=== PATIENT | female | born 1990 | race Caucasian/White ===

== ENCOUNTER 2019-10-03 05:59 | Inpatient (IN) | payer OTHER, SELFPAY ==
[2019-10-03] VITALS (67 sets, daily range): BP systolic 89–122; BP diastolic 55–75; PULSE 53–166; RESP 13–16; TEMP 36.6–36.7; O2SAT 90–100; BMI 35.2
[2019-10-03] MEDS: LACTATED RINGERS 1,000 ML 125 ML IV CONT ×2 (07:24→08:05)
[2019-10-03 07:41] LABS: Basophils Percent Auto 0.3 % (0.2-1.2); Eosinophils Absolute Auto 0.3 K/mm3 (0-0.3); Eosinophils Percent Auto 2.7 % (0-4.4); Hematocrit 40.9 % (37.0-47.0); Hemoglobin 12.8 g/dL (12.0-15.0); Immature Granulocyte Percent A 1.7 % (0-0.5); Lymphocytes Absolute Auto 1.91 K/mm3 (0.9-3.2); Lymphocytes Percent Auto 16.5 % (18.3-44.2); Mean Corpuscular HGB Conc 31.3 g/dl (32-36); Mean Corpuscular Volume 92.5 fl (80-100); Mean Platelet Volume 10.8 fl (7.4-10.4); Monocytes Absolute Auto 0.9 K/mm3 (0.1-0.6); Monocytes Percent Auto 7.3 % (2.6-8.5); Neutrophils Absolute Auto 8.3 K/mm3 (1.3-6.7); Neutrophils Percent Auto 71.5 % (45.5-73.1); Platelet Count Result 161 k/mm3 (150-375); Red Blood Count 4.42 M/mm3 (4.2-5.4); White Blood Count 11.6 K/mm3 (4.5-10.0)
--- NOTE | 2019-10-03 07:57 | WPDANESEPP ---
Anes - Eval Pre Procedure Procedure: Labor Epidural Date/Time: 10/03/19 07:57 Surgeon: Shlomo Preop Diagnosis: Pain during labor Pre Op Diagnosis: INDURCTION OF LABOR Patient Data Age: 29 Gender: F Height: 5 ft 9 in Weight: 108 kg Last Vital Signs Pulse 71 10/03/19 06:46 BP 89/69 L 10/03/19 06:46 Allergies Allergy/AdvReac Type Severity Reaction Status Date / Time No Known Allergies Allergy Verified 09/05/19 13:37 Home Medications Medication Instructions Recorded Confirmed Type PNV cmb#95-ferrous fumarate-FA 1 tablet PO DAILY 09/05/19 09/05/19 History [] Laboratory Tests 10/03/19 10/03/19 07:21 07:21 WBC 11.6 K/mm3 H K/mm3 (4.5-10.0) RBC 4.42 M/mm3 M/mm3 (4.2-5.4) Hgb 12.8 g/dL g/dL (12.0-15.0) Hct 40.9 % % (37.0-47.0) MCV 92.5 fl fl (80-100) MCH 29.0 pg pg (26-34) MCHC 31.3 g/dl L g/dl (32-36) RDW 14.0 % % (11.5-14.5) Plt Count 161 k/mm3 k/mm3 (150-375) MPV 10.8 fl H fl (7.4-10.4) Immature Gran % (Auto) 1.7 % H % (0-0.5) Neut % (Auto) 71.5 % % (45.5-73.1) Lymph % (Auto) 16.5 % L % (18.3-44.2) [place] % (Auto) 7.3 % % (2.6-8.5) Eos % (Auto) 2.7 % % (0-4.4) Baso % (Auto) 0.3 % % (0.2-1.2) Lymph # (Auto) 1.91 K/mm3 K/mm3 (0.9-3.2) [place] # (Auto) 0.9 K/mm3 H K/mm3 (0.1-0.6) Eos # (Auto) 0.3 K/mm3 K/mm3 (0-0.3) Baso # (Auto) 0.0 K/mm3 K/mm3 (0.0-0.1) Abs Immat Gran (auto) 0.20 K/mm3 H K/mm3 (0.00-0.031) Absolute Neuts (auto) 8.3 K/mm3 H K/mm3 (1.3-6.7) Absolute Nucleated RBC 0.0 K/mm3 K/mm3 (0.0-0.012) Nucleated RBC % 0.0 % % (0.0-0.2) RPR Pending : gestational age ([place] 10/02/19, ) Patient hx anesthesia problems: none Family hx anesthesia problems: none [facility] Social History Social History Smoking status: Never smoker Alcohol intake: current Substance use: never Spiritual care concerns: No Exam Day of Procedure 10/03/19 07:57
--- NOTE | 2019-10-03 08:45 | WPDOBADMIT ---
Obstetrics - Admit Note Admission Note: record reviewed. Additions to the history and/or subsequent changes in the physical findings follow. 29 y/o at 40 1/7 weeks here for induction of labor. GBS neg. uncomplicated. AVSS NST reactive TOCO: contractions every 2-4 min ABD soft, nontender, gravid, vertex EXT nontender Cervix 5/80/-1. AROM with clear fluid. A: IUP at term with favoable cervix. P: Oxytocin. Anticipate .
--- NOTE | 2019-10-03 14:05 | PC.NURSE ---
Patient transferred to post room #284 per wheelchair from labor and delivery. Support person present. Oriented to unit, room, information board, rooming in, admission packet and security measures. Patient verbalizes understanding.
[2019-10-03] MEDS: IBUPROFEN 600 MG TABLET PO ×2 (14:21→19:58)
--- NOTE | 2019-10-03 14:41 | PM.OBPRVD ---
OB - Delivery Note Procedure Delivery date: 10/03/19 Procedure: Induction of labor with Induction method: AROM and per pitocin protocol Delivery monitor: external FHT and external uterine Route of delivery: Episiotomy description: Midline Delivery repair: vicryl (3-0) Specimen: Yes (cord blood) Estimated blood loss (mL): 270 Anesthesia type: Epidural Disposition: PACU Complications: Induction of labor with Narrative: 29 year-old 3 para 1011 at 40 1/7 weeks gestation who presented to the hospital for induction of labor. Oxytocin was administered intravenously. Amniotomy was performed with return of clear fluid. She received an epidural for pain control. Her labor progressed and her cervix dilated completely. She pushed with good effort. A midline episiotomy was made and the 's head delivered to the perineum, followed by the body. The nose and mouth were bulb suctioned. After a delay, the cord was clamped and cut. The infant was handed off the field. Cord blood was collected. The placenta delivered spontaneously and was grossly normal in appearance. The usual 3 vessel cord was noted. The MLE was reapproximated using 3 0 Vicryl in the usual layered fashion. Excellent hemostasis resulted as did excellent reapproximation of the normal anatomy. Needle and instrument counts were correct. The patient was taken to recovery room in stable condition. The infant went to the nursery in stable condition. I was present and scrubbed for the entire delivery. [place] Baby Date of : 10/03/19 Time of : 11:03 Weeks of gestation at delivery: 40 gender: Female Weight (pounds): 9 Weight (ounces): 6 presentation: vertex position: Left Occiput Anterior Placenta delivery description: Spontaneous and Normal Configuration cord vessel description: 3 Vessels score one minute: 8 score five minutes: 9
--- NOTE | 2019-10-03 14:44 | PM.OBDSVD ---
DS: Diagnosis Discharge Diagnosis (1) Normal delivery at term: Code(s): O80 - Encounter for full-term uncomplicated delivery Status: Acute OB - DS: Summary OB Procedures : None OB Procedures Intrapartum: Spontaneous Vag Delivery OB Procedures: : None Time Spent with Patient Time attestation: Total time spent providing and/or coordinating discharge services: DS: Data Data Completed and Pending Labs on day of discharge: Labs from last 24 hours 10/03/19 10/03/19 10/03/19 07:21 07:21 07:21 WBC 11.6 H RBC 4.42 Hgb 12.8 Hct 40.9 MCV 92.5 MCH 29.0 MCHC 31.3 L RDW 14.0 Plt Count 161 MPV 10.8 H Immature Gran % (Auto) 1.7 H Neut % (Auto) 71.5 Lymph % (Auto) 16.5 L [place] % (Auto) 7.3 Eos % (Auto) 2.7 Baso % (Auto) 0.3 Lymph # (Auto) 1.91 [place] # (Auto) 0.9 H Eos # (Auto) 0.3 Baso # (Auto) 0.0 Abs Immat Gran (auto) 0.20 H Absolute Neuts (auto) 8.3 H Absolute Nucleated RBC 0.0 Nucleated RBC % 0.0 RPR Pending Blood Type O Positive Antibody Screen Negative Discharge Plan Discharge Attending physician on discharge: Mac Keenan Discharging Clinician: Mac Keenan Patient Disposition: Home, Self-Care Activity: pelvic rest Diet: regular Discharge Instructions: Education: Mom and Baby Guide Given to: Mother Follow-Up: Call your delivering provider's office for an appointment to be seen in: 6 Weeks Mom and baby should come to the [facility] for the follow-up appointment. Appointment Date/Time: October 06, 2019 at 8:00 am What to expect at your follow-up visit: Blood Pressure Check Physical Assessment Call [phone] if you are unable to keep your appointment time. BREAST CARE: 1. Wear a snug supportive bra. 2. For engorgement discomfort: Breast Feeding: A. Apply warm moist washcloths B. Express milk as needed to relieve engorgement C. Wear loose clothing Bottle Feeding: A. May apply ice packs 3. For sore nipples: A. Identify correct latch-on B. Apply warm moist washcloths before and after nursing C. Air dry nipples after nursing D. May apply Lansinoh cream to nipples EPISIOTOMY/PERINEAL CARE: 1. Until bleeding stops, use your anisa bottle after urinating 2. Change your pad frequently throughout the day 3. You may take sitz baths several times a day (fill your bathtub with warm water and soak for 20 minutes.) Do NOT bathe in the water 4. No tub baths until seen by your physician - You may shower ACTIVITY: 1. Rest as much as possible. 2. Do not exercise or lift anything heavier than your baby (such as laundry or other children.) 3. Avoid stairs or driving as much as possible. 4. Do not put anything into the vagina. No douching, tampons, or sexual activity until seen by physician. NOTIFY PHYSICIAN IF YOU HAVE ANY QUESTIONS OR IF ANY OF THE FOLLOWING SYMPTOMS OCCUR: 1. If your episiotomy becomes red, swollen, or more painful than what you have experienced in the hospital. 2. If your vaginal bleeding becomes foul smelling. 3. If your vaginal bleeding becomes more heavy than a period or if your bleeding changes from pink to bright red. However, you may pass an occasional walnut-sized clot once or twice for the first week . 4. If you experience a sharp, shooting pain in you calves. 5. If you discover a hard, reddened area on your breast or if you experience flu-like symptoms. 6. Temperature of 100.4 or higher. DIET: 1. Eat regular, well-balanced meals. 2. Drink plenty of fluids daily. If , drink to thirst. Call or return if temperature above 100.4? F, increased abdominal pain, increased vaginal bleeding or any new problems. Patient Instructions: Antibiotic Form Stand Alone Forms: General Discharge Information Follow-u
--- NOTE | 2019-10-03 15:15 | PC.NURSE ---
Consult with pt., reviewed infant feeding cues, frequencies, duration of feedings, feeding elimination flow sheet, and signs of adequate intake. Demonstrated stimulation techniques to wake infant for feeding. Assisted with infant to breast. Reviewed positioning/alignment in cross cradle, holding breast in U hold and guided asymmetrical latch on. Discussed rational for each. With in a few attempts, was able to latch correctly. Infant nursed eagerly, with steady draws and frequent swallowing noted. Reviewed signs of a correct latch, effective nursing and suck swallow ratio. was able to maintain latch without discomfort to mother. Nipple care reviewed. Suggested to hold breast during entire feeding to assist with maintaining deep latch, and to stimulate to keep awake and interested in feeding. Instructed mother to call out for RN assistance if she is unable to latch for feeding or she has discomfort with nursing. Instructed feeding should be initiated three hours from start of last feeding or if feeding cues are noted before. Mother voiced understanding of information shared.
[2019-10-03] MEDS: WITCH HAZEL 40 PADS 1 PAD TOPICAL (19:57)
[2019-10-03] MEDS: BENZOCAINE 20% AER SPR (*SP) 56 GM CAN 1 SPRAY TOPICAL (19:57)
[2019-10-04] MEDS: IBUPROFEN 600 MG TABLET PO ×4 (01:42→23:15)
[2019-10-04 04:30] LABS: Hemoglobin 10.5 g/dL (12.0-15.0)
--- NOTE | 2019-10-04 07:00 | PC.NURSE ---
Pt introductions made and plan of care discussed per post , pain management, breast feeding, daily care activities. PT verbalized understanding of such care.
--- NOTE | 2019-10-04 08:30 | WPDANLDPN2 ---
Anes-Prog Note L&D Date/Time: 10/04/19 08:30 Comfortable throughout: labor and delivery Neuraxial method: epidural Epidural/Spinal procedure site: clean & non-tender Neuro status: Neuro function grossly intact. Cardiovascular status: normal Respiratory status: normal Airway patency: baseline Mental status: baseline Post-Op hydration status: normal Vital Signs: Last Vital Signs Temp 36.7 C 10/03/19 19:30 Pulse 70 10/03/19 19:30 Resp 13 10/03/19 19:30 BP 96/55 L 10/03/19 19:30 Pulse Ox 99 10/03/19 19:30 Patient feedback: Patient satisfied with anesthetic care.
[2019-10-04 08:46] LABS: Rapid Plasma Reagin Non-Reactive (NonReactive)
[2019-10-04 08:49] VITALS: PULSE 81; RESP 16; O2SAT 98
[2019-10-04] MEDS: MULTIVIT/MIN/PREN/FOL AC/IRON TABLET 1 TAB PO (08:49)
[2019-10-04 09:00] VITALS: BP 99/57; PULSE 81; RESP 16; TEMP 36.4; O2SAT 98
[2019-10-04] MEDS: WITCH HAZEL 40 PADS 1 PAD TOPICAL ×2 (10:03→17:23)
--- NOTE | 2019-10-04 13:35 | PC.NURSE ---
Consult with pt., mother reports she has some tenderness with first latch that will resolve within the feeding. Requested mother call out next feeding for observation.
--- NOTE | 2019-10-04 16:20 | PC.NURSE ---
Mother called out for assist with latch due to tenderness. Reviewed positioning/alignment in cross cradle, holding breast in U hold and guided asymmetrical latch on. struggles to draw nipple in, mother's areola firms with stimulation. Suggested mother put infant to breast without lifting. Within a few attempts infant was able to latch correctly without tenderness to mother. nursed eagerly, with steady draws and frequent swallowing noted. Reviewed signs of a correct latch, effective nursing and suck swallow ratio. was able to maintain latch without discomfort to mother. Nipple care reviewed. has long pausing with nursing, advised to stimulate to keep infant nursing effectively and assisting with maintaining deep latch. Instructed mother to call out for RN assistance if she is unable to latch infant for feeding or she has discomfort with nursing. Instructed feeding should be initiated three hours from start of last feeding or if feeding cues are noted before. Mother voiced understanding of information shared.
[2019-10-04] MEDS: DOCUSATE SODIUM 100 MG CAPSULE PO (17:20)
[2019-10-04] MEDS: BENZOCAINE 20% AER SPR (*SP) 56 GM CAN 1 SPRAY TOPICAL (17:23)
[2019-10-04] MEDS: LANOLIN (LANSINOH) 7.5 GM CREAM 1 APPLIC TOPICAL (17:23)
[2019-10-04 20:35] VITALS: BP 108/66; PULSE 77; RESP 14; TEMP 36.3; O2SAT 98
[2019-10-05] MEDS: IBUPROFEN 600 MG TABLET PO ×2 (05:26→11:26)
--- NOTE | 2019-10-05 07:55 | PM.OBDSVD ---
OB - DS: Summary OB Procedures : None OB Procedures Intrapartum: Spontaneous Vag Delivery OB Procedures: : None Status at Discharge Functional status at discharge: independent ambulation Overall status at discharge: patient is back to baseline Time Spent with Patient Time attestation: Total time spent providing and/or coordinating discharge services: Time spent: Less than 30 minutes Exam Const: General: comfortable and no acute distress Resp: Effort & Inspection: normal respiratory effort Auscultation: clear to auscultation bilaterally Cardio: Rate: regular rate GI: GI Palp: Yes Soft to palpation Auscultation: normal bowel sounds Other: Fundus firm below umbilicus Psych: Appearance: grossly normal Mental Status: mental status grossly normal Affect: normal affect DS: Data Data Completed and Pending Labs on day of discharge: Labs from last 24 hours 10/03/19 07:21 RPR Non-reactive Discharge Plan Discharge Attending physician on discharge: Mac Keenan Discharging Clinician: Mac Keenan Patient Disposition: Home, Self-Care Activity: pelvic rest Diet: regular Discharge Instructions: Call or return if temperature above 100.4? F, increased abdominal pain, increased vaginal bleeding or any new problems. Stand Alone Forms: General Discharge Information Follow-up/Referrals: Mac Keenan MD [Physician] - (6 weeks) Discharge Medications: New ibuprofen 600 mg tablet 600 mg PO Q6H PRN (Reason: cramps) Qty: 30 RF: 0 hydrocodone-acetaminophen [[place]] 5-325 mg tablet 1 tablet PO Q6H PRN (Reason: pain) Qty: 20 RF: 0 acetaminophen [Mapap (acetaminophen)] 325 mg Tablet 650 mg PO Q6H PRN (Reason: Mild Pain (1-3) Or Headache) Qty: 30 RF: 0 Dermoplast (with menthol) 20-0.5 % Aerosol 1 spray topical PRN PRN (Reason: Perineal Discomfort) Qty: 1 RF: 0 ibuprofen 600 mg Tablet 600 mg PO Q6H PRN (Reason: Cramping) Qty: 30 RF: 0 Ffv-A-Hprdwj Cream 1 applic topical PRN PRN (Reason: Sore Nipples) Qty: 1 RF: 0 Continued PNV cmb#95-ferrous fumarate-FA [] 28 mg iron- 800 mcg Tablet 1 tablet PO DAILY RF: 0 Date of admission: 10/03/19 05:59 Primary Care Provider: Lary,Saman Admitting Provider: Mac Keenan Attending physician on admission: Mac Keenan
[2019-10-05 08:20] VITALS: BP 97/59; PULSE 75; RESP 18; TEMP 36.7; O2SAT 98
[2019-10-05] MEDS: MULTIVIT/MIN/PREN/FOL AC/IRON TABLET 1 TAB PO (08:44)
[2019-10-05] MEDS: DOCUSATE SODIUM 100 MG CAPSULE PO (08:44)
[2019-10-05] MEDS: WITCH HAZEL 40 PADS 1 PAD TOPICAL (08:47)
--- NOTE | 2019-10-05 09:30 | PC.NURSE ---
Consulted with patient, mother wishes observation of latch before discharge. Mother has had slight tenderness with latching, which has been better over the last few feedings. Mother is able to independently latch infant with appropriate positioning/alignment. Reviewed positioning/alignment in football, holding breast in C hold and guided asymmetrical latch on. Infant nursed eagerly, with steady draws and frequent swallowing noted. Reviewed signs of a correct latch, effective nursing and suck swallow ratio. did slip down while feeding to shallow latch. Demonstrated how to adjust latch more deeply while feeding. Mother was able to correct latch with one attempt. Mother is feeding as required and waking infant to feed if needed. Infant has had 8 effective feedings in the past 24 hours, and is currently meeting outcomes for weight, output, jaundice and feeding frequencies. Mother states she feels confident to continue effective at home. Reviewed transition to breast milk, signs of adequate intake, and engorgement/relief. Instructed to call ICP if intake/output less than required. Reviewed regular medications mother is taking. Information provided per Beti. Reviewed community resources on the [facility] website and in the Mom/Baby guide. Information on outpatient services provided. Mother has no further questions at this time.
[2019-10-06 08:45] VITALS: BP 113/67; PULSE 73; RESP 18; TEMP 36.8
== END 2019-10-05 14:30 | disposition home or self-care (01) | DRG 807 ==
LOC: ANHLDR 06:10 → ANHOB2 14:45 → ANHLDR 10-08 11:50 → ANHOB2 10-08 11:50
PROVIDERS: Admitting Provider Obstetrics & Gynecology; PCP Physician Assistant; Visit Provider Student in an Organized Health Care Education/Training Program
DX: O80 Encounter for full-term uncomplicated delivery (principal); Z37.0 Single live birth; Z3A.40 40 weeks gestation of pregnancy
CPT/HCPCS: 36415; 85014; 85018; 85025; 86592; 86850; 86900; 86901; A9270; J2590; J2795; J7120

== ENCOUNTER 2020-08-12 12:11 | Outpatient (NON) | payer OTHER, SELFPAY ==
[2020-08-12 23:03] LABS: SARS-CoV-2 RNA PCR Positive
== END 2020-08-12 12:12 ==
PROVIDERS: PCP Physician Assistant; Visit Provider Physician Assistant
DX: U07.1 COVID-19 (principal)
CPT/HCPCS: 87635; C9803; U0003

== ENCOUNTER 2022-02-16 16:02 | Inpatient (IN) | payer OTHER, SELFPAY ==
[2022-02-16] VITALS (56 sets, daily range): BP systolic 82–138; BP diastolic 42–82; PULSE 44–109; RESP 16; TEMP 36.4–36.8; O2SAT 95–100; BMI 38.9
--- NOTE | 2022-02-16 16:30 | LDADM ---
This patient, Gregoria Soriano, was admitted to Labor/Delivery/Recovery 105 on 02/16/22 at 16:02. Plans for labor, pain management and were discussed with patient. Patient/family oriented to hospital policies and general routines including ID bracelet, bed and alarms, visiting hours, pain management, procedures, bathroom and other care routines, personal items, smoking policy, room service/diet and guest tray routines, infant security routines, and visiting hours. Patient/Family are encouraged to report perceived risks to care and to ask questions if they do not understand what they are told or what they should do. See OBIX for further documentation.
[2022-02-16 16:50] LABS: Basophils Percent Auto 0.3 % (0.2-1.2); Eosinophils Absolute Auto 0.2 K/mm3 (0-0.3); Eosinophils Percent Auto 1.3 % (0-4.4); Hematocrit 39.2 % (37.0-47.0); Hemoglobin 12.4 g/dL (12.0-15.0); Immature Granulocyte Absolute 0.11 K/mm3 (0.00-0.031); Immature Granulocyte Percent A 0.9 % (0-0.5); Lymphocytes Absolute Auto 1.73 K/mm3 (0.9-3.2); Lymphocytes Percent Auto 13.6 % (18.3-44.2); Mean Corpuscular HGB Conc 31.6 g/dl (32-36); Mean Corpuscular Hemoglobin 28.2 pg (26-34); Mean Corpuscular Volume 89.1 fl (80-100); Monocytes Absolute Auto 0.8 K/mm3 (0.1-0.6); Monocytes Percent Auto 6.3 % (2.6-8.5); Neutrophils Absolute Auto 9.9 K/mm3 (1.3-6.7); Neutrophils Percent Auto 77.6 % (45.5-73.1); Platelet Count Result 184 k/mm3 (150-375); Red Cell Distribution Width 20.7 % (11.5-14.5); White Blood Count 12.7 K/mm3 (4.5-10.0)
--- NOTE | 2022-02-16 17:09 | WPDANESEPP ---
Anes - Eval Pre Procedure Procedure: labor epidural Date/Time: 02/16/22 17:09 Surgeon: caitlin Pre Op Diagnosis: Induction of Labor Patient Data Age: 32 Gender: F Height: 1.75 m Weight: 119.5 kg Last Vital Signs Pulse 80 02/16/22 16:31 BP 109/70 02/16/22 16:31 Allergies Allergy/AdvReac Type Severity Reaction Status Date / Time No Known Allergies Allergy Verified 02/02/22 15:31 Home Medications Medication Instructions Recorded Confirmed Type vit no.95-ferrous 1 tablet PO DAILY 09/05/19 02/16/22 History fumarate 28 mg-folic acid 800 mcg tablet () ferrous sulfate 325 mg (65 mg 325 mg PO DAILY 02/02/22 02/02/22 History iron) tablet,delayed release Laboratory Tests 02/16/22 02/16/22 16:39 16:39 WBC 12.7 K/mm3 H K/mm3 (4.5-10.0) RBC 4.40 M/mm3 M/mm3 (4.2-5.4) Hgb 12.4 g/dL g/dL (12.0-15.0) Hct 39.2 % % (37.0-47.0) MCV 89.1 fl fl (80-100) MCH 28.2 pg pg (26-34) MCHC 31.6 g/dl L g/dl (32-36) RDW 20.7 % H % (11.5-14.5) Plt Count 184 k/mm3 k/mm3 (150-375) MPV 11.0 fl H fl (7.4-10.4) Immature Gran % (Auto) 0.9 % H % (0-0.5) Neut % (Auto) 77.6 % H % (45.5-73.1) Lymph % (Auto) 13.6 % L % (18.3-44.2) [place] % (Auto) 6.3 % % (2.6-8.5) Eos % (Auto) 1.3 % % (0-4.4) Baso % (Auto) 0.3 % % (0.2-1.2) Lymph # (Auto) 1.73 K/mm3 K/mm3 (0.9-3.2) [place] # (Auto) 0.8 K/mm3 H K/mm3 (0.1-0.6) Eos # (Auto) 0.2 K/mm3 K/mm3 (0-0.3) Baso # (Auto) 0.0 K/mm3 K/mm3 (0.0-0.1) Abs Immat Gran (auto) 0.11 K/mm3 H K/mm3 (0.00-0.031) Absolute Neuts (auto) 9.9 K/mm3 H K/mm3 (1.3-6.7) Absolute Nucleated RBC 0.0 K/mm3 K/mm3 (0.0-0.012) Nucleated RBC % 0.0 % % (0.0-0.2) RPR Pending Patient hx anesthesia problems: none Family hx anesthesia problems: none Results Review: All pre-operative results and documents have been reviewed as part of the pre-operative evaluation. [facility] Family History Family History Mother Hypertension Sibling Patient's sister is in good health Father Patient's father is Grandparent Cerebrovascular accident, Onset Age: 34 Diabetes mellitus, Onset Age: 33 Social History Social History Smoking status: Never smoker Second hand tobacco smoke exposure: No Alcohol intake: current Substance use: never Spiritual care concerns: No Exam Day of Procedure 02/16/22 17:09
[2022-02-16] MEDS: LACTATED RINGERS 1,000 ML 125 ML IV CONT ×2 (17:18→18:05)
[2022-02-16] MEDS: OXYTOCIN 30 UNITS/NS 500 ML 30 UNITS/500 ML BAG IV CONT (17:18)
--- NOTE | 2022-02-16 18:10 | WPDOBADMIT ---
Obstetrics - Admit Note Admission Note: record reviewed. Additions to the history and/or subsequent changes in the physical findings follow. 32 y/o at 39 weeks here for induction. GBS neg. AVSS NST reactive TOCO: irregular contractions ABD soft, nontender, gravid, vertex EXT nontender Cervix 4-5/50/-2. Vertex. AROM with clear fluid. A: IUP at term with favorable cervix. P: Oxytocin. Anticipate .
[2022-02-16] MEDS: PHENYLEPHRINE 1,000 MCG/10 ML SYRINGE 100 MCG IV PUSH (18:58)
--- NOTE | 2022-02-16 21:00 | P.PCNOB_ITS ---
OB - Delivery Note Procedure Delivery date: 02/16/22 Procedure: Induction of labor with Induction method: Per Cervidil Protocol Delivery augmentation: Rupture of Membranes Delivery monitor: External FHT and External Uterine Route of delivery: Episiotomy description: Midline Delivery repair: vicryl (-30) Specimen: Yes (cord blood) Quantitative Blood Loss (ml): 220 Anesthesia type: Epidural Disposition: PACU Complications: None Narrative: 32 y/o at 39 weeks gestation who presented to the hospital for induction of labor. Oxytocin was administered intravenously. Amniotomy was performed with return of clear fluid. She received an epidural for pain control. Her labor progressed and her cervix dilated completely. She pushed w ith good effort. A midline episiotomy was made, and the infant's head delivered to the perineum, followed by the body. The nose and mouth were bulb suctioned. After a delay, the cord was clamped and cut. The was handed off the field. Cord blood was collected. The placenta delivered spontaneously and was grossly normal in appearance. The usual 3 vessel cord was noted. The episiotomy was free of extension. It was reapproximated using 3 0 Vicryl in the usual layered fashion. Excellent hemostasis resulted as did excellent reapproximation of the normal anatomy. Needle and instrument counts were correct. The patient was taken to recovery room in stable condition. The went to the nursery in stable condition. I was present and scrubbed for the entire delivery. [place] Baby Date of : 02/16/22 Time of : 20:55 Weeks of gestation at delivery: 39 Infant gender: Male Weight (pounds): 9 presentation: vertex position: Left Occiput Anterior Placenta delivery description: Spontaneous and Normal Configuration Cord Vessel Description: 3 Vessels and Delayed Cord Clamping score one minute: 8 score five minutes: 9
--- NOTE | 2022-02-16 21:06 | PM.OBDSVD ---
DS: Admitting Diagnosis Discharge Date 02/18/22 Admitting Diagnosis IUP at 39 weeks DS: Discharge Diagnosis Discharge Diagnosis (1) (normal spontaneous vaginal delivery): Code(s): O80 - Encounter for full-term uncomplicated delivery Status: Acute OB - DS: Summary OB Procedures : None OB Procedures Intrapartum: Spontaneous Vag Delivery OB Procedures: : None Time Spent with Patient Time attestation: Total time spent providing and/or coordinating discharge services: DS: Data Data Completed and Pending Labs on day of discharge: Labs from last 24 hours 02/16/22 02/16/22 02/16/22 16:39 16:39 16:39 WBC 12.7 H RBC 4.40 Hgb 12.4 Hct 39.2 MCV 89.1 MCH 28.2 MCHC 31.6 L RDW 20.7 H Plt Count 184 MPV 11.0 H Immature Gran % (Auto) 0.9 H Neut % (Auto) 77.6 H Lymph % (Auto) 13.6 L [place] % (Auto) 6.3 Eos % (Auto) 1.3 Baso % (Auto) 0.3 Lymph # (Auto) 1.73 [place] # (Auto) 0.8 H Eos # (Auto) 0.2 Baso # (Auto) 0.0 Abs Immat Gran (auto) 0.11 H Absolute Neuts (auto) 9.9 H Absolute Nucleated RBC 0.0 Nucleated RBC % 0.0 RPR Pending Blood Type O Positive Antibody Screen Negative Discharge Plan Discharge Attending physician on discharge: Mac Keenan Discharging Clinician: Mac Keenan Patient Disposition: Home, Self-Care Activity: pelvic rest Diet: regular Discharge Instructions: Call or return if temperature above 100.4? F, increased abdominal pain, increased vaginal bleeding or any new problems. Stand Alone Forms: General Discharge Information Follow-up/Referrals: Mac Keenan MD [Physician] - Discharge Medications: New ibuprofen 600 mg tablet 600 mg PO Q6H PRN (Reason: cramps) Qty: 30 0RF hydrocodone-acetaminophen 5-325 mg tablet 1 tablet PO Q4H PRN (Reason: pain) Qty: 20 0RF Continued PNV cmb#95-ferrous fumarate-FA [] 28 mg iron- 800 mcg Tablet 1 tablet PO DAILY Discontinued ferrous sulfate 325 mg (65 mg iron) Tablet,Delayed Release (Dr/Ec) 325 mg PO DAILY Date of admission: 02/16/22 16:02 Primary Care Provider: LaryMonique Admitting Provider: Mac Keenan Attending physician on admission: Mac Keenan Condition: Stable
[2022-02-16] MEDS: OXYTOCIN 30 UNITS/NS 500 ML 30 UNITS/500 ML BAG 125 UNITS IV CONT (21:15)
[2022-02-16] MEDS: BENZOCAINE 20% AER SPR (*SP) 56 GM CAN 1 SPRAY TOPICAL (23:01)
[2022-02-16] MEDS: WITCH HAZEL 40 PADS 1 PAD TOPICAL (23:01)
[2022-02-16] MEDS: IBUPROFEN 600 MG TABLET PO (23:20)
[2022-02-17] MEDS: ACETAMINOPHEN 325 MG TABLET 650 MG PO (00:10)
[2022-02-17] MEDS: IBUPROFEN 600 MG TABLET PO ×3 (04:53→21:57)
[2022-02-17 04:57] LABS: Hematocrit 34.4 % (37.0-47.0); Hemoglobin 11.1 g/dL (12.0-15.0)
--- NOTE | 2022-02-17 07:54 | P.PNOB_ITS ---
OB - PN: Subj Subjective Date/time seen: 02/17/22 07:54 Narrative: Pain a little bothersome, would like some Goldonna. Also would like some TUMS and Pepcid, if possible. Desires circumcision for son. OB - PN: Obj Data Labs CBC & Chem 7: 02/17/22 04:44 Labs: Laboratory Results - last 24 hr 02/16/22 02/16/22 02/17/22 16:39 16:39 04:44 WBC 12.7 H RBC 4.40 Hgb 12.4 11.1 L Hct 39.2 34.4 L MCV 89.1 MCH 28.2 MCHC 31.6 L RDW 20.7 H Plt Count 184 MPV 11.0 H Immature Gran % (Auto) 0.9 H Neut % (Auto) 77.6 H Lymph % (Auto) 13.6 L [place] % (Auto) 6.3 Eos % (Auto) 1.3 Baso % (Auto) 0.3 Lymph # (Auto) 1.73 [place] # (Auto) 0.8 H Eos # (Auto) 0.2 Baso # (Auto) 0.0 Abs Immat Gran (auto) 0.11 H Absolute Neuts (auto) 9.9 H Absolute Nucleated RBC 0.0 Nucleated RBC % 0.0 Blood Type O Positive Antibody Screen Negative OB - PN A/P Plan Comments: A: PPD#1, doing well. P: Routine care. Reviewed circ. Exam Psych: Other: AVSS ABD soft, nontender, fundus firm EXT nontender
[2022-02-17 08:00] VITALS: BP 111/67; PULSE 77; RESP 18; TEMP 36.5; O2SAT 100
--- NOTE | 2022-02-17 09:31 | WPDANLDPN2 ---
Anes-Prog Note L&D Date/Time: 02/17/22 09:31 Neuro status: Neuro function grossly intact. Vital Signs: Last Vital Signs Temp 36.5 C 02/17/22 08:00 Pulse 77 02/17/22 08:00 Resp 18 02/17/22 08:00 BP 111/67 02/17/22 08:00 Pulse Ox 100 02/17/22 08:00 O2 Del Method Room Air 02/16/22 19:00 Pain score (VAS): 0 I/O: Intake & Output 02/16/22 02/17/22 02/17/22 23:59 07:59 15:59 Intake Total 1000 Output Total 20 Balance 980 Patient feedback: Patient satisfied with anesthetic care.
[2022-02-17] MEDS: DOCUSATE SODIUM 100 MG CAPSULE PO ×2 (09:35→18:03)
[2022-02-17] MEDS: HYDROcodone/acetaminophen (*CRX) 5-325 MG TABLET 1 TAB PO ×4 (09:35→21:56)
[2022-02-17] MEDS: LANOLIN (LANSINOH) 7.5 GM CREAM 1 APPLIC TOPICAL (09:35)
[2022-02-17] MEDS: MULTIVIT/MIN/PREN/FOL AC/IRON TABLET 1 TAB PO (09:37)
[2022-02-17 11:57] VITALS: BP 103/57; PULSE 77; RESP 16; TEMP 36.6; O2SAT 99
[2022-02-17 12:52] LABS: Rapid Plasma Reagin Non-Reactive (NonReactive)
[2022-02-17] MEDS: CALCIUM CARBONATE (TUMS) 500 MG (200 MG ELEMENTAL) PO (14:01)
[2022-02-17 16:16] VITALS: BP 109/67; PULSE 84; RESP 16; TEMP 36.7; O2SAT 100
[2022-02-17 19:58] VITALS: BP 105/57; PULSE 82; RESP 18; TEMP 36; O2SAT 99
[2022-02-17] MEDS: FAMOTIDINE 20 MG TABLET PO (22:00)
[2022-02-18] MEDS: WITCH HAZEL 40 PADS 1 PAD TOPICAL (01:23)
[2022-02-18] MEDS: BENZOCAINE 20% AER SPR (*SP) 56 GM CAN 1 SPRAY TOPICAL (01:23)
[2022-02-18] MEDS: HYDROcodone/acetaminophen (*CRX) 5-325 MG TABLET 1 TAB PO ×4 (02:07→12:50)
[2022-02-18] MEDS: IBUPROFEN 600 MG TABLET PO ×2 (05:50→12:51)
[2022-02-18 08:15] VITALS: BP 120/72; PULSE 81; RESP 18; TEMP 36.6; O2SAT 100
[2022-02-18] MEDS: MULTIVIT/MIN/PREN/FOL AC/IRON TABLET 1 TAB PO (09:27)
[2022-02-18] MEDS: DOCUSATE SODIUM 100 MG CAPSULE PO (09:27)
[2022-02-18 12:51] VITALS: TEMP 36.6
--- NOTE | 2022-02-18 13:06 | PC.NURSE ---
[id number] Introductions were made and Mother led the conversation with her experience and plan to feed her infant so far and her ability to independently latch infant optimally without discomfort. Reminded parents to use good handwashing technique to prevent infection. Mother is feeding appropriately for growth of infant and understands stimulating infant to eat if needed. has had appropriate feedings in the last 24 hours meets the outcomes for weight, output and jaundice at this time. Mother states she is confident to continue effectively and demonstrates latching to the left breast in football position. She is prepared to breastfeed her infant at home, knows when to call for assistance and denies any additional assistance or education at this time. Reinforced understanding of milk production, transition of milk, signs of adequate intake, prevention/relief of engorgement, responsive after visualizing feeding cues, the different methods of stimulating infant to breastfeed 2-3 hours after the start of the last feeding, community resources, medication information reviewed per [facility] and when to call a provider using the resource of the mom and baby guide/[facility] website. Mother voiced understanding of the education shared. Reported to the primary RN.
--- NOTE | 2022-02-18 13:08 | PM.OBPNVD ---
OB - PN: Subj Subjective Date/time seen: 02/18/22 13:08 Narrative: Pain OK. Would like to go home. OB - PN: Obj Data Labs CBC & Chem 7: 02/17/22 04:44 OB - PN A/P Plan Comments: A: PPD#2, doing well. P: Home to f/u 6 weeks. Exam Psych: Other: AVSS ABD soft, nontender, fundus firm EXT nontender
--- NOTE | 2022-02-18 14:53 | PC.NURSE ---
Pt discharged to home ambulatory accompanied by infant and spouse and taken to waiting car. Follow up appts confirmed
[2022-02-19 07:47] VITALS: BP 112/73; PULSE 72; RESP 20; TEMP 37.1; O2SAT 99
== END 2022-02-18 14:53 | disposition home or self-care (01) | DRG 807 ==
LOC: ANHLDR 21:08 → ANHOB2 23:05
PROVIDERS: Admitting Provider Obstetrics & Gynecology; PCP Physician Assistant; Visit Provider Obstetrics & Gynecology
DX: O76 Abnormality in fetal heart rate and rhythm complicating labor and delivery (principal); Z37.0 Single live birth; Z3A.39 39 weeks gestation of pregnancy
CPT/HCPCS: 36415; 85014; 85018; 85025; 86592; 86850; 86900; 86901; A9270; J2370; J2590; J2795; J7120